=== PATIENT | female | born 1985 | race Caucasian/White ===

== ENCOUNTER → 2019-07-13 13:21 | Outpatient (CLI) | payer OTHER, SELFPAY ==
[2019-07-13 10:47] VITALS: BMI 29.9
[2019-07-13 16:45] LABS: Chlamydia Trachomatis by PCR Negative (Negative); Neisserai gonorrhoeae by PCR Negative (Negative); Probe Check PASS; Sample Adequacy Control PASS; Specimen Processing Control PASS
== END ==
PROVIDERS: Family Provider Family Medicine; PCP Family Medicine; Referring Provider Nurse Practitioner Women's Health; Visit Provider Nurse Practitioner Women's Health
DX: A64 Unspecified sexually transmitted disease (principal)
CPT/HCPCS: 87491; 87591

== ENCOUNTER 2021-12-12 09:10 | Outpatient (CLI) | payer OTHER, SELFPAY ==
[2021-12-17 22:07] LABS: HPV Genotype 16, Aptima Negative (Negative)
[2021-12-17 22:32] LABS: HPV APTIMA, High Risk Positive (Negative); HPV Genotype 18,45 Aptima Negative (Negative)
== END 2021-12-12 23:59 | disposition short-term general hospital (02) ==
LOC: LABSPEC 12-13 09:11
PROVIDERS: PCP Family Medicine; Visit Provider Nurse Practitioner Women's Health
DX: Z01.419 Encounter for gynecological examination (general) (routine) without abnormal findings (principal)
CPT/HCPCS: 87624; 88175; G0145

== ENCOUNTER 2021-12-28 12:55 | Outpatient (CLI) | payer OTHER, SELFPAY ==
--- NOTE | 2021-12-28 13:00 | US_ITS ---
STUDY: ULTRASOUND OF THE FEMALE PELVIS - COMPLETE REASON FOR EXAM: Female, 36 years old.. Heavy irregular menses. Cold 6 years ago that her IUD fell out. LMP: Unknown. TECHNIQUE: Transabdominal and Transvaginal TECHNICAL QUALITY: Adequate. COMPARISON: None. FINDINGS: The uterus is anteverted and is in a midline position. The uterus measures 7.1 x 5.4 x 4.0 cm. There is a Nabothian cyst of the cervix. The endometrium measures 12 mm in thickness, and is hyperechoic. There is no demonstrated endometrial mass. Small calcification in the endometrium. The There is no demonstrated myometrial mass. I.U.D. - The patient does not have an I.U.D. The right ovary is visualized. The right ovary measures 3.5 x 3.2 x 2.2 cm. There are multiple follicles of the right ovary with a dominant 2.9 x 1.4 x 1.6 cm cyst There is no visualized right adnexal mass or complex lesion. There is normal arterial and normal venous vascularity. The left ovary is visualized. The left ovary measures 3.4 x 3.0 x 2.4 cm. There are multiple follicles of the left ovary with a dominant 1.5 x 1.6 x 1.2 cm follicle. There is no visualized left adnexal mass or complex lesion. There is normal arterial and normal venous vascularity. There is minimal fluid in the cul-de-sac. The urinary bladder is grossly normal. Prevoid volume is 551 mL. Polycystic ovary disease: No. US/Transvaginal Non- IMPRESSION: 1. No visualize IUD within the endometrium. There is a small calcification noted. 2. Cyst versus large follicle in the right ovary. 3. Normal left ovary. 4. Minimal free fluid can''t be physiologic Electronically Signed: Robert Siddiqi DO at 22:57 EST ,
--- NOTE | 2021-12-28 13:00 | US_ITS ---
STUDY: ULTRASOUND OF THE FEMALE PELVIS - COMPLETE REASON FOR EXAM: Female, 36 years old.. Heavy irregular menses. Cold 6 years ago that her IUD fell out. LMP: Unknown. TECHNIQUE: Transabdominal and Transvaginal TECHNICAL QUALITY: Adequate. COMPARISON: None. FINDINGS: The uterus is anteverted and is in a midline position. The uterus measures 7.1 x 5.4 x 4.0 cm. There is a Nabothian cyst of the cervix. The endometrium measures 12 mm in thickness, and is hyperechoic. There is no demonstrated endometrial mass. Small calcification in the endometrium. The There is no demonstrated myometrial mass. I.U.D. - The patient does not have an I.U.D. The right ovary is visualized. The right ovary measures 3.5 x 3.2 x 2.2 cm. There are multiple follicles of the right ovary with a dominant 2.9 x 1.4 x 1.6 cm cyst There is no visualized right adnexal mass or complex lesion. There is normal arterial and normal venous vascularity. The left ovary is visualized. The left ovary measures 3.4 x 3.0 x 2.4 cm. There are multiple follicles of the left ovary with a dominant 1.5 x 1.6 x 1.2 cm follicle. There is no visualized left adnexal mass or complex lesion. There is normal arterial and normal venous vascularity. There is minimal fluid in the cul-de-sac. The urinary bladder is grossly normal. Prevoid volume is 551 mL. Polycystic ovary disease: No. US/Pelvic (Non ) IMPRESSION: 1. No visualize IUD within the endometrium. There is a small calcification noted. 2. Cyst versus large follicle in the right ovary. 3. Normal left ovary. 4. Minimal free fluid can''t be physiologic Electronically Signed: Robert Siddiqi DO at 22:57 EST Reading Location ID and State: [facility] Tel [phone], Service support ,
== END 2021-12-28 23:59 | disposition home or self-care (01) ==
LOC: US 12:59
PROVIDERS: PCP Family Medicine; Referring Provider Nurse Practitioner Women's Health; Visit Provider Nurse Practitioner Women's Health
DX: N92.6 Irregular menstruation, unspecified (principal)
CPT/HCPCS: 76830; 76856

== ENCOUNTER 2022-01-03 13:36 | Outpatient (CLI) | payer OTHER, SELFPAY ==
--- NOTE | 2022-01-03 | IMM_PTH ---
PATIENT: CODY GOLDBERG LOC: [facility] U#:[id number] AGE/SX: 36/F ROOM: RE01/03/[address]: Dr. Sandra Gaines DO : 1985 BED: DIS: 01/03/2022 SPEC #: [id number] RECD: 01/08/22 07:33 STATUS: ULISES RERick #: [id number] ELVIA: 01/03/22 00:[address]: Sandra Gaines DEPT: IMMUNOHISTOCHEMISTRY RECD BY: Dalila Gray ENTERED: 01/08/22 07:33 SP TYPE: IMMUNO OTHR DR: Dr. Ronnie Brown MD Tissues: B - Uterine cervix, NOS Procedures: p16 (initial) KI-67 (add) PHYSICIAN & INSTITUTION [place] [id number] SPECIMEN INFORMATION: Tissue Source: B ? Cervix at 12 o?clock Clinical Info: HPV positive Specimen Number: [id number] CPT code: 03658, 82461 METHODOLOGY: Deparaffinized sections of prefer/formalin-fixed tissue or PAP/DQ stained slides are incubated with monoclonal/polyclonal antibodies/oligonucleotide probes. Localization is made via biotin free immunoperoxidase method. Appropriate controls are performed and reacted as expected. Results on target cell population are indicated in the following table: RESULTS: ANTIBODY / CLONE RESULT Block B P16 (E6H4) negative Ki-67 (30-9) negative These tests were developed and their performance characteristics determined by [facility]. They may not have been cleared or approved by the U.S. Food and Drug Administration. The FDA has determined that such clearance or approval is not necessary. The above immunohistochemical/dualISH markers are ordered and reviewed by the Pathologist. INTERPRETATION: B. Cervix at 12 o?clock, biopsy: No evidence of dysplasia. AM:gareth 01/08/2022
--- NOTE | 2022-01-03 10:30 | ECC_PTH ---
PATIENT: CODY GOLDBERG LOC: [facility]#:[id number] AGE/SX: 36/F ROOM: RE01/03/[address]: Dr. Sandra Gaines DO : 1985 BED: DIS: 01/03/2022 SPEC #: [id number] RECD: 01/03/22 13:20 STATUS: ULISES ARAUJO #: [id number] ELVIA: 01/03/22 10:[address]: Sandra Gaines DEPT: SURGICAL PATHOLOGY RECD BY: Nasima Griffin ENTERED: 01/04/22 09:38 SP TYPE: ECC DONTE DR: Dr. Ronnie Brown MD Tissues: A - Endocervical B - Uterine cervix, NOS Procedures: Surgery Specimen Level IV HEADER OPERATION: Colposcopy PRE-OP DIAGNOSIS: HPV positive TISSUE SUBMITTED: A ? ECC, B ? 12 o?clock MICROSCOPIC DIAGNOSIS A. Endocervix, curettings: Scant strips of benign superficial endocervix. B. Cervix at 12 o?clock, biopsy: Squamous metaplasia and chronic inflammation. See comment. AM:gareth 01/08/2022 COMMENT B. Results from immunohistochemistry ([id number]) for surrogate HPV marker (p16) will be reported separately. MICROSCOPIC DESCRIPTION Slides are reviewed. GROSS DESCRIPTION A - Received in fixative is one container labeled with the patient's name and designated ECC. The specimen consists of multiple irregular fragments of saleh mucoid tissue that in aggregate measure 1 x 0.5 x 0.1 cm. The specimen is totally submitted in one cassette. B - Received in fixative is one container labeled with the patient's name and designated 12 o'clock cervix. The specimen consists of one irregular fragment of light saleh soft tissue that measures 0.4 x 0.3 x 0.1 cm. The specimen is totally submitted in one cassette. / SJ:gareth 01/04/2022 TC:3 CPT: 74224 x2
== END 2022-01-03 23:59 | disposition home or self-care (01) ==
LOC: LABSPEC 13:36
PROVIDERS: PCP Family Medicine; Visit Provider Obstetrics & Gynecology
DX: R87.810 Cervical high risk human papillomavirus (HPV) DNA test positive (principal)
CPT/HCPCS: 88305; 88341; 88342

== ENCOUNTER → 2022-10-24 | Outpatient (CLI) | payer OTHER, SELFPAY | END | disposition home or self-care (01) | LOC: LABSPEC 16:14 | PROVIDERS: PCP Family Medicine; Visit Provider Nurse Practitioner Women's Health | DX: N89.8 Other specified noninflammatory disorders of vagina (principal) | CPT/HCPCS: 87070; 87205 ==

== ENCOUNTER → 2022-12-16 | Outpatient (CLI) | payer OTHER, SELFPAY ==
[2022-12-20 17:14] LABS: HPV APTIMA, High Risk Positive (Negative)
== END | disposition home or self-care (01) ==
LOC: LABSPEC 11:53
PROVIDERS: PCP Family Medicine; Referring Provider Nurse Practitioner Women's Health; Visit Provider Nurse Practitioner Women's Health
DX: Z12.4 Encounter for screening for malignant neoplasm of cervix (principal); B97.7 Papillomavirus as the cause of diseases classified elsewhere
CPT/HCPCS: 87624; 88175; G0145

== ENCOUNTER → 2023-01-06 | Outpatient (CLI) | payer OTHER, SELFPAY ==
--- NOTE | 2023-01-06 12:46 | US_ITS ---
STUDY: ULTRASOUND OF THE FEMALE PELVIS - COMPLETE REASON FOR EXAM: Female, 37 years old. Menorrhagia LMP: 12/18/2022 TECHNIQUE: Transabdominal and Transvaginal TECHNICAL QUALITY: Adequate. COMPARISON: 12/28/2021 FINDINGS: The uterus is anteverted and is in a midline position. The uterus measures 8.9 x 5.6 x 4.1 cm. Normal uterine cervix. The endometrium measures 6 mm in thickness, and is hyperechoic. There is a hyperechoic 1.9 x 1.4 x 0.5 cm endometrial polyp new since the previous study There is no demonstrated myometrial mass. I.U.D. - The patient does not have an I.U.D. The right ovary is visualized. The right ovary measures 2.9 x 2.1 x 2.2 cm. There is no right ovarian cyst or ovarian mass. There is no visualized right adnexal mass or complex lesion. There is normal arterial and normal venous vascularity. The left ovary is visualized. The left ovary measures 3.3 x 2.5 x 2.6 cm. There is no left ovarian cyst or ovarian mass. There is no visualized left adnexal mass or complex lesion. There is normal arterial and normal venous vascularity. There is no fluid in the cul-de-sac. The latter is sonographically normal with estimated capacity of 482 mL US/Pelvic (Non ) IMPRESSION: Hyperechoic 1.9 x 1.4 x 0.5 cm lesion within the endometrium, likely a polyp not seen on previous study No suspicious adnexal mass or free fluid Electronically Signed: Buddy Dhillon MD at 8:19 EST ,
== END | disposition home or self-care (01) ==
LOC: US 12:45
PROVIDERS: Visit Provider Obstetrics & Gynecology
DX: N92.6 Irregular menstruation, unspecified (principal)
CPT/HCPCS: 76830; 76856

== ENCOUNTER → 2023-01-09 | Outpatient (CLI) | payer OTHER, SELFPAY ==
--- NOTE | 2023-01-09 | IMM_PTH ---
PATIENT: CODY GOLDBERG LOC: [facility] U#:[id number] AGE/SX: 37/F ROOM: RE01/09/[address]: Dr. Sandra Gaines DO : 1985 BED: DIS: 01/09/2023 SPEC #: [id number] RECD: 01/13/23 12:45 STATUS: ULISES RERick #: [id number] ELVIA: 01/09/23 00:[address]: Sandra Gaines DEPT: IMMUNOHISTOCHEMISTRY RECD BY: Dalila Gray ENTERED: 01/13/23 12:47 SP TYPE: IMMUNO OTHR DR: RAJI Luis Tissues: A - Uterine cervix, NOS Procedures: p16 (initial) KI-67 (add) PHYSICIAN & INSTITUTION [place] [id number] SPECIMEN INFORMATION: Tissue Source: A ? Cervix at 12 o?clock Clinical Info: ASCUS, HPV positive Specimen Number: [id number] CPT code: 19896, 27929 METHODOLOGY: Deparaffinized sections of prefer/formalin-fixed tissue or PAP/DQ stained slides are incubated with monoclonal/polyclonal antibodies/oligonucleotide probes. Localization is made via biotin free immunoperoxidase method. Appropriate controls are performed and reacted as expected. Results on target cell population are indicated in the following table: RESULTS: ANTIBODY / CLONE RESULT Block A P16 (E6H4) negative Ki-67 (30-9) positive, low These tests were developed and their performance characteristics determined by [facility]. They may not have been cleared or approved by the U.S. Food and Drug Administration. The FDA has determined that such clearance or approval is not necessary. The above immunohistochemical/dualISH markers are ordered and reviewed by the Pathologist. INTERPRETATION: A. Cervix at 12 o?clock, biopsy: Negative for dysplasia. CARLA:gareth 01/14/2023
--- NOTE | 2023-01-09 14:00 | CER_PTH ---
PATIENT: CODY GOLDBERG [facility][id number] AGE/SX: 37/F ROOM: RE01/09/[address]: Dr. Sandra Gaines DO : 1985 BED: DIS: 01/09/2023 SPEC #: [id number] RECD: 01/09/23 14:50 STATUS: ULISES ARAUJO #: [id number] ELVIA: 01/09/23 14:[address]: Sandra Gaines DEPT: SURGICAL PATHOLOGY RECD BY: Leah Molina ENTERED: 01/10/23 07:37 SP TYPE: CERV OTHR DR: RAJI Luis Tissues: A - Uterine cervix, NOS B - Endocervical Procedures: Surgery Specimen Level IV HEADER OPERATION: Colposcopy PRE-OP DIAGNOSIS: ASCUS, HPV positive TISSUE SUBMITTED: A - Cervix 12 o?clock, B - Endocervical curettings MICROSCOPIC DIAGNOSIS A. Cervix, 12 o?clock, biopsy: Moderate chronic inflammation and squamous metaplasia. Negative for dysplasia. See comment. B. Endocervical curettings: Fragments of benign endocervical epithelium, negative for dysplasia. CARLA:gareth 01/13/2023 COMMENT A. Immunohistochemistry ([id number]) for surrogate HPV marker (p16) supports the above diagnosis. MICROSCOPIC DESCRIPTION Slides are reviewed. GROSS DESCRIPTION A - Received in fixative is one container labeled with the patient's name and designated 12 o'clock. The specimen consists of one irregular fragment of light saleh soft tissue that measures 0.4 x 0.4 x 0.1 cm. The specimen is totally submitted in one cassette. B - Received in fixative is one container labeled with the patient's name and designated ECC. The specimen consists of a scant amount of soft tissue. The specimen is totally submitted for cell block preparation. / CARLA:gareth 01/10/2023 TC:3 CPT: 54852 x2
== END | disposition home or self-care (01) ==
LOC: LABSPEC 14:59
PROVIDERS: Visit Provider Obstetrics & Gynecology
DX: N87.1 Moderate cervical dysplasia (principal)
CPT/HCPCS: 88305; 88341; 88342

== ENCOUNTER 2023-02-25 10:01 | Day surgery (SDC) | payer OTHER, SELFPAY ==
[2023-02-25] VITALS (8 sets, daily range): BP systolic 102–121; BP diastolic 61–88; PULSE 64–76; RESP 16–17; TEMP 36.7–36.9; O2SAT 97; BMI 32.7
[2023-02-25] MEDS: Levonorgestrel IUD (Liletta) 1 EACH INTRA-UTER (08:00)
[2023-02-25] MEDS: Lactated Ringers 1,000 ML 15 ML IV (10:48)
[2023-02-25 10:56] LABS: Internal QC Validated? YES +Cl - CLEAR BKGD; Pregnancy, Urine Negative Negative
--- NOTE | 2023-02-25 11:02 | HP.PCM_ITS ---
History and Physical Date of Admission: 02/25/23 Intake Vital Signs ? 01/09/2313:44 01/09/2313:45 Height 5 ft 6 in 5 ft 6 in Weight: 208 lb 8 oz ? BMI 33.6 ? BP 124/81 H ? Allergies No Known Allergies Allergy (Verified 01/09/23 13:44) Medications multivitamin 1 tab PO DAILY 12/12/21 [History Confirmed 01/09/23] alprazolam 0.25 mg tablet (Xanax) 0.25 mg PO .prn 10/24/22 [History Confirmed 01/09/23] bupropion HCl 150 mg tablet,12 hr sustained-release (Wellbutrin SR) 150 mg PO DAILY 10/24/22 [History Confirmed 01/09/23] escitalopram oxalate 10 mg tablet 10 mg PO DAILY 10/24/22 [History Confirmed 01/09/23] megestrol 40 mg tablet 40 mg PO .COMPLEX #45 tabs 12/16/22 [Rx Confirmed 01/09/23] Post menopausal: No Patient : No : No PFSH PFSH Family History? Father HypertensionGrandfather CancerGrandmother Cancer Social History? number of children:? 1 current occupational status:? employed current occupation:? [employer] Smoking Status:? Light Smoker (<10/day) Tobacco: How many years used:? 12 alcohol intake:? current alcohol intake frequency: holidays/special occasions only substance use type:? does not use what type of physical activity do you participate in:? other details: farming seatbelt use:? always do you feel safe at home:? Yes additional social history:? [place] ? ? [employer] History ? ? ? 2 ? Elective abortions ? Hx ParaA ? ? ? 1 ? Spontaneous abortions ? ? ? 1 Hx # Term Pregnancies ? ? ? 1 ? Ectopic pregnancies ? Hx # PregnanciesA ? Multiple births ? # of living children ? ? ? 1 Past Pregnancies Del. Date Name GA/Weeks Outcome Route Bth Weight Infant Gen Labor Lgth Anesthesia Del [facility] Provider FOB Unknown Tonia? ? 2007 ? HPI Colposcopy Details: CODY GOLDBERG is a 37 year old who presents for hysteroscopy D&C. She has had on and off bleeding for the last year. She is ready for a dilation and curettage +/- mirena IUD. ROS Const ROS Unobtainable: All systems reviewed & are unremarkable except as noted in H Resp Resp: Reports system reviewed and no additional complaints, except as documented; Denies cough GI GI: Reports as per HPI Psych Psych: Reports system reviewed and no additional complaints, except as documented Exam Const General: cooperative, healthy appearing, comfortable and no acute distress Resp Effort & Inspection: normal respiratory effort General: bimanual renal exam normal bilaterally External Female Exam: normal appearance of the urethra Urethra: normal appearance of the urethra Speculum Exam - Vagina: normal appearance of the vagina Speculum Exam - Cervix: normal appearance of the cervix Bimanual Exam- Adnexa, other: normal adnexae and normal Pelvic Support: normal Skin General: no rashes or lesions noted Psych Appearance: grossly normal Speech and Movement: speech and movement normal Results POC Urine Office , Urine Negative ? ? Last Edit by Noris Kimball on 01/09/23 13:57 Coding Diagnoses ASCUS with positive high risk human papillomavirus of vagina? R87.620; R87.811 HPV (human papilloma virus) infection? B97.7 Irregular menses? N92.6 Abnormal uterine bleeding due to endometrial polyp? N93.9; N84.0 Assessment and Plan Assessment and Plan (1) ASCUS with positive high risk human papillomavirus of vagina: ?Status:?Acute ?Comment: colposcopy (2) HPV (human papilloma virus) infection: ?Status:?Acute (3) Irregular menses: ?Status:?Acute ?Comment: Failed IUD, aygestin. US normal 12/2021. Rx megace. schedule with JV hysteroscopy D&C (4) Abnormal uterine bleeding due to endometrial polyp: ?Status:?Acute ?Plan: After discussing the patient's diagnosis and treatment plan options, patient wishes to proceed with surgical management. plan to proceed with dilation and curettage and removal of polyp and mirena insertion to prevent further polyps.? I have discussed with the patient the risks, benefits, and alternatives of the procedure which include but are not limited to risks of anesthesia, bleeding, infection, possible damage to bowel, bladder, or surrounding vasculature which could lead to additional surgery to evaluate any complications.? Patient agrees to procedure and wishes to proceed.? ACOG/uptodate references given for additional information regarding procedure.?
--- NOTE | 2023-02-25 11:30 | EMB_PTH ---
PATIENT: CODY GOLDBERG LOC: [facility] [place] U#:[id number] AGE/SX: 37/F ROOM: RE02/25/[address]: Dr. Sandra Gaines DO : 1985 BED: DIS: 02/25/2023 SPEC #: [id number] RECD: 02/25/23 13:36 STATUS: ULISES ARAUJO #: [id number] ELVIA: 02/25/23 11:[address]: Sandra Gaines DEPT: SURGICAL PATHOLOGY RECD BY: Nasima Griffin ENTERED: 02/26/23 11:00 SP TYPE: ENDOM BX/C OTHR DR: RAJI Luis Tissues: Endometrium, NOS Procedures: Surgery Specimen Level IV HEADER OPERATION: Hysteroscopy, D & C, polypectomy, IUD PRE-OP DIAGNOSIS: ASCUS with positive high risk HPV, irregular menses, abnormal uterine bleeding TISSUE SUBMITTED: Endometrial curettings MICROSCOPIC DIAGNOSIS Endometrium, curettings: Polypoid fragments of mildly disordered proliferative endometrium with stromal and focal glandular breakdown. AM:gareth 02/27/2023 MICROSCOPIC DESCRIPTION Slides are reviewed. GROSS DESCRIPTION Received in fixative is one container labeled with the patient's name and designated endometrial curettings. The specimen consists of multiple fragments of saleh hemorrhagic soft tissue that in aggregate measure 2.5 x 1.5 x 0.2 cm. A fragment of polyp is also noted measuring 1.5 x 0.6 x 0.2 cm. The entire specimen is submitted in two cassettes. Cassette 2 contains the polyp. / SJ:gareth 02/26/2023 TC: 5 CPT: 87287
[2023-02-25] MEDS: Lidocaine 1% (20 ml mdv) 20 ML Vial (11:54)
--- NOTE | 2023-02-25 12:24 | DCINST_ITS ---
Discharge Instructions Diet Discharge Diet: No restrictions Activity Discharge Activity: Return to Normal Activity, May Shower and May Take a Tub Bath (after 1 week) May resume sexual activity in: 1-2 weeks Weight Bearing Status: Weight bearing as tolerated Lifting Restrictions: none Dressing / Incision Call your doctor if you observe: Fever of 101 or Higher, Using more than 1 pad per hour, Shortness of breath and Uncontrolled pain Follow Up Care Please Follow Up With: Sandra Gaines DO When: Call [phone] to schedule appointment. Test Results: Test results from this visit will be discussed in further detail at your follow- up appointment, if applicable. Discharge Plan Admission Primary Reason for Your Visit: hysteroscopy dilation and curettage, removal of polyp and placement of IUD Attending Provider: Sandra Gaines Primary Care Provider: Margret Brownlee Discharge Orders/Prescriptions Prescriptions: New naproxen 500 mg tablet 500 mg PO BID PRN (Reason: pain) Qty: 20 0RF Continued multivitamin Tablet 1 tab PO DAILY escitalopram oxalate 10 mg tablet 5 mg PO DAILY bupropion HCl [Wellbutrin SR] 150 mg tablet sustained-release 12 hr 150 mg PO DAILY alprazolam [Xanax] 0.25 mg tablet 0.25 mg PO .prn Referrals / Follow Up: Margret Brownlee PA [Primary Care Provider] - Disposition Disposition (needs filled in before D/C Order can be placed): Home, Self Care
--- NOTE | 2023-02-25 12:26 | PCM.OP.BLANK ---
Problems Associated Problem List Diagnoses (1) Abnormal uterine bleeding due to endometrial polyp: Operative Report Date of Procedure: 02/25/23 Preoperative diagnosis: abnormal uterine bleeding and abnormal ultrasound suggestive of polyp Postoperative diagnosis: abnormal uterine bleeding and abnormal ultrasound suggestive of polyp Procedure: hysteroscopy Dilation and curettage/polypectomy, placement of intrauterine device Surgeon: Dr. Sandra Gaines DO Anesthesia: MAC/local complications: none EBL: 10cc urine output: 75cc IV fluids in: 500cc fluid deficit: 0 details of the procedure. Patient was prepped and draped in a normal sterile fashion under MAC anesthesia. A weighted speculum was placed in the vagina and the anterior lip of the cervix was grasped with a single-tooth tenaculum. A paracervical block was placed with 1% lidocaine. Cervix was progressively dilated to allow passage of a 5 mm hysteroscope. The lining was fully visualized and noted to have a polyp like mass on the anterior uterine wall. Uterine sounded to 8 cm. Curettage was performed and the polyp structure was removed and sent to pathology. The levonorgestrel intrauterine device was inserted into the uterus and the string was trimmed to 3 cm from the cervix. All instruments were removed from the vagina and excellent hemostasis was noted. Patient was awoken and taken to recovery in stable condition. Multi Select Codes Urinary/Genital Urinary/Genital CPT Codes: 31988 Hysteroscopy,EMC, Polypectomy and Other Procedure See Report (insertion of intrauterine device)
[2023-02-25] MEDS: HYDROcodone Bitartrate/Apap 5/325 Tablet PO (13:20)
== END 2023-02-25 13:42 | disposition home or self-care (01) ==
LOC: SDC 10:02 → AC 10:04
PROVIDERS: Anesthesiology; Referring Provider Obstetrics & Gynecology; Visit Provider Obstetrics & Gynecology
PROC: 0UB98ZZ Excision of Uterus, Via Natural or Artificial Opening Endoscopic (ICD-10-PCS; CPT 58558; principal; 2023-02-25 11:15)
DX: N84.0 Polyp of corpus uteri (principal); N93.9 Abnormal uterine and vaginal bleeding, unspecified; F17.200 Nicotine dependence, unspecified, uncomplicated; N92.6 Irregular menstruation, unspecified; F41.9 Anxiety disorder, unspecified; Z79.899 Other long term (current) drug therapy; Z30.430 Encounter for insertion of intrauterine contraceptive device
CPT/HCPCS: 58558; 58300; 00952; 81025; 86850; 86900; 86901; 88305; J7120; J2405

== ENCOUNTER → 2023-12-31 | Outpatient (CLI) | payer OTHER, SELFPAY ==
--- OUTSIDE RECORDS SUMMARY | 2023-12-31 11:12 | XMS RPT_ITS | CCD ---
Author Name Unknown Address [email or web address] [place] [address] Organization [facility] Care Team Providers Care Metal Box Maker Name Role Phone DOCTOR, NO F. Unavailable Unavailable BREECE, MIKE Unavailable Unavailable Kem MARIN, Margret Magana Unavailable [phone] [facility] Unavailable Shaun MOLDING MANAGER, Krupa Unavailable Savanah RN, Dorinda Armstrong Unavailable Unavaila ble Martlisseth MOLDING MANAGER, Morenita Unavailable Unavailable Michelle SECURITY CHECKER, Francisca Unavailable Unavailable Uptain CNM, Crystal K Unavailable Joey Brown MD Unavailable [phone] Stan Gannon LPN Unavailable Unavailable Unavailable Unavailable JOEY BROWN Consulting Unavailable ANABEL HUTCHINSON CNP Admitting Unavailable ANABEL HUTCHINSON CNP Primary Care Unavailable ANABEL HUTCHINSON CNP Attending Unavailable PROVIDER, UNKNOWN Consulting Unavailable PROVIDER, UNKNOWN Consulting Unavailable PROVIDER, UNKNOWN Consulting Unavailable Medications Current Medications Medication Drug Class(es) Dates Sig (Normalized) Sig (Original) ALPRAZolam 0.25 mg oral tablet (1 source) Benzodiazepine Start: 08-08-2023 ALPRAZolam 0.25 mg tablet ; 1 (one) Tablet three times daily, as needed for 0 days Quantity: 30 {Tablet} Refills: 0 Ordered: 08-Aug-2023 TANIA Brownlee Start: 08-Aug-2023 Comments: Medication taken as needed. Farnaz Duvall 08/08/2023 Completed/Discontinued Medications Medication Drug Class(es) Dates Sig (Normalized) Sig (Original) [id number] 200 actuat albuterol 0.09 mg/actuat metered dose inhaler (1 source) beta2-Adrenergic Agonist Albuterol 90 MCG/ACT Inhalation Aerosol Solution ; as needed (90 MCG/ACT) Status: Inactive Comments: Medication taken as needed. Problems Active Problems Problem Classification Problem Date Documented Date Episodic/Chronic Acute bronchitis (2 sources) Acute bronchitis; Translations: [Acute bronchitis, unspecified] 07-17-2021 Episodic Adjustment disorders (3 sources) Adjustment disorder with anxious mood; Translations: [Adjustment disorder with anxiety] 08-11-2023 Chronic Anxiety disorders (14 sources) Anxiety; Translations: [Anxiety disorder, unspecified] 08-11-2023 Chronic Disorders usually diagnosed in infancy, childhood, or adolescence (6 sources) Attention deficit hyperactivity disorder, predominantly inattentive type; Translations: [Other specified behavioral and emotional disorders with onset usually occurring in childhood and adolescence] 08-11-2023 Chronic Malaise and fatigue (5 sources) Fatigue; Translations: [Other fatigue] 08-11-2023 Episodic Other female genital disorders (2 sources) Abnormal vaginal bleeding; Translations: [Abnormal uterine and vaginal bleeding, unspecified] 07-01-2019 Chronic Other nervous system disorders (2 sources) Impaired cognition; Translations: [Other symptoms and signs involving cognitive functions and awareness] 08-11-2023 Episodic Other nutritional; endocrine; and metabolic disorders (2 sources) Body mass index 30+ - obesity; Translations: [Body mass index (BMI) 31.0-31.9, adult] 07-17-2021 Chronic Other screening for suspected conditions (not mental disorders or infectious disease) (2 sources) Encounter for screening for diabetes mellitus; Translations: [Encounter for screening for cardiovascular disorders] Onset: 12-24-2023 Episodic Other upper respiratory disease (1 source) Other allergic rhinitis; Translations: [Other allergic rhinitis] Onset: 12-24-2023 Chronic Residual codes; unclassified (1 source) Tobacco user; Translations: [Tobacco use] 08-11-2023 Episodic Screening and history of mental health and substance abuse codes (2 sources) H/O: anxiety state; Translations: [Personal history of other mental and behavioral disorders] 08-11-2023 Episodic Unclassified (1 source) Number of Children 06-29-2019 Past or Other Problems Problem Classification Problem Date Documented Da te Episodic/Chronic Unclassified (1 source) Cold Symptoms - Symptoms include sneezing (had for the first few days), runny nose, ear fullness, sore throat (did have in the beginning, has post nasal drainage), hoarseness, dry cough (been getting a pain on the left lower side of chest/bra line, mostly occurs with coughing, will get slight pain other times when she is not coughing. Cough is slightly productive today), wheezing (the prescribed Albuterol inhaler has helped with the wheezing and shortness of breath), fever (low grade fever intermittent, has not been over 100.8 F.), chills (chills have subsided but will get a cold clammy sweat feeling when she is having a coughing spell), general malaise (body aches in the beginning but not now), headache and facial pain (sinus pressure), but do not include nasal congestion, ear pain or productive cough. The onset was 1 week(s) ago. The symptoms occur constantly. The patient describes this as moderate in severity and unchanged (will feel better some mornings). Current treatment includes non-prescription cold medication (Nyquil), an oral decongestant (Mucinex) and Albuterol inhaler. Risk factors include smoking (has not smoked while being sick). The patient has been exposed to an individual with similar symptoms (coworker started with sx 2 days prior to patient's sx starting). Patient denies history of seasonal allergies, asthma or tonsillectomy. Note for Upper respiratory infection : Did a teledoc visit on Friday, was prescribed Albuterol Inhaler PRN and advised to have Covid-19 test done. Patient was tested yesterday for Covid-19, 24 hour test and came back negative. Is not vaccinated against Covid-19. 07-17-2021 Unclassified (1 source) Menstrual problems - The menstrual problems are characterized as intermenstrual spotting and have been occurring in a continuous pattern for 4 days. The first day of the last menstrual period was : (06/18/2019-06/22/2019 spotting started 06/26/2019-intercourse the night before spotting began). Currently : no. The symptoms have been associated with abdominal cramps (right thigh cramping like she gets with her periods), but have not been associated with abdominal pain, painful intercourse, fever, vomiting, low back pain or galactorrhea. There is a medical history of miscarriage (3 years ago) and emotional problems (anxiety), while there is no history of diabetes, thyroid disease, ectopic or uterine/cervical cancer. The patient denies the use of oral contraceptives, anticoagulants, aspirin, digitalis, adrenal steroids, thyroid medications or chemotherapy. 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 06-29-2019 Unclassified (1 source) Anxiety - The onset of the anxiety has been gradual and has been occurring in a persistent pattern for 1 year. The course has been recurrent. The anxiety is characterized as apprehension. Note for Anxiety : she also has a foggy feeling , ears ringing ,mild headaches for 5days-she does think she may have mild seasonal allergies. She also has times where she has difficulty focusing . She no longer has the stress at work that she discussed at her last visit, she has since left that place of employment and is happy where she is. 04-02-2019 Unclassified (1 source) Follow up from hospital stay - Name of Hospital: [facility]. Date of Admission: 02/09. The patient was hospitalized for presyncope. No new medications were prescribed. Note for Follow up from hospital stay : [place] E[place] and told to seek advice from a PCP for ppossible panic attack. 02-12-2018 Results Test Name Value Interpretation Reference Range Facil ity Vital Signs Date Time Vital Sign Value Performing Clinician Faci lity 08-11-2023 08:52-0400 Body height 167.64 cm Dorinda Pavon RN [facility], [facility]. 08-11-2023 08:52-0400 Body mass index (BMI) [Ratio] 32.44 kg/m2 Dorinda aPvon RN [facility], [facility]. 08-11-2023 08:52-0400 Body surface area Derived from formula 2 m2 Dorinda Pavon RN [facility], [facility].; [employer]. 08-11-2023 08:52-0400 Body weight 91.17 kg Dor[facility].; He [employer] [facility], [facility]. 08-11-2023 08:52-0400 Diastolic blood pressure 80 mm[Hg] [facility].; [employer], [facility]. Encounters Encounter Date Encounter Type Care Provider Facility Start: 12-24-2023 End: 12-24-2023 [facility] Start: 08-11-2023 End: 08-11-2023 Office outpatient visit 15 minutes Margret Brownlee PA-C Work Phone: [facility] Start: 08-08-2023 End: 08-08-2023 Medication Margret Brownlee PA-C [facility]: [facility] Start: 09-04-2022 End: 09-04-2022 Medication Margret Brownlee PA-C Work Phone: [employer] [facility] Start: 08-19-2022 End: 08-19-2022 Office outpatient visit 25 minutes Margret Brownlee PA-C Work Phone: [facility] Start: 07-16-2022 End: 07-16-2022 Medication Margret Brownlee PA-C Work Phone: [facility] Start: 07-04-2022 End: 07-04-2022 Office outpatient visit 25 minutes Margret Brownlee PA-C Work Phone: [facility] Start: 04-09-2022 End: 04-09-2022 Medication Margret Brownlee PA-C Work Phone: [facility] Start: 03-05-2022 End: 03-05-2022 Orders Margret Brownlee PA-C Work Phone: [facility] Start: 03-04-2022 End: 03-04-2022 Medication Margret Brownlee PA-C Work Phone: [employer] Start: 03-01-2022 End: 03-01-2022 Office outpatient visit 15 minutes Margret Brownlee PA-C Work Phone: [employer] Start: 01-28-2022 End: 01-28-2022 Medication Margret Brownlee PA-C Work Phone: [employer] Start: 01-09-2022 End: 01-09-2022 Office outpatient visit 15 minutes Margret Brownlee PA-C Work Phone: [employer] Start: 07-17-2021 End: 07-17-2021 Office outpatient visit 15 minutes Margret Brownlee PA-C Work Phone: [employer] Start: 03-12-2021 End: 03-12-2021 Patient encounter procedure Margret Brownlee PA-C Work Phone: [employer] Start: 07-01-2019 End: 07-01-2019 Orders Margret Brownlee PA-C Work Phone: [employer] Start: 06-29-2019 End: 06-29-2019 Office outpatient visit 10 minutes Margret Brownlee PA-C Work Phone: [employer] Start: 04-02-2019 End: 04-02-2019 Patient encounter procedure Margret Brownlee PA-C Work Phone: [employer] Start: 02-11-2018 End: 02-12-2018 Patient encounter procedure Margret Brownlee PA-C Work Phone: [employer] Start: 02-09-2018 End: 02-09-2018 Emergency department patient visit NO F. DOCTOR Facility:[facility] Procedures Date Procedure Procedure Detail Performing Clinician Start: 02-11-2018 End: 02-11-2018 Body mass index documented Joey Brown MD Work Phone: Plan of Treatment Date Care Activity Detail Author Start: 02-12-2024 Patient encounter procedure Medical; EXTENDED RTN - 6 mo f/u [employer] Start: 12-Feb-2024 10:50 TANIA Brownlee Appointment Request [employer] Payers Date Payer Category Payer Private Health Insurance [id number] 1985 Unknown [id number] [facility] Social History Date Type Detail Facility Tobacco Use: Tobacco Use: ; Former smoker . [employer] Female [employer]; [employer] Work Phone: Smokes tobacco daily [employer]; [employer]. Work Phone: Ex-smoker [employer]; [employer] Work Phone: Summary Purpose Family History No Family History Records Found Diabetes Mellitus Type II Status:Active Commen ts:grandparents Father Status:Active Comments:In good health. Hypertension Status:Active Comments:Family Members In General. Mother Status:Active Comments:In good health. Advance Directives No Advanced Directives Records FoundNo Advanced Directives Records FoundNo Advanced Directives Records Found Additional Source Comments INFORMATION SOURCE (unrecogn ized section and content) DATE CREATED AUTHOR AUTHOR'S ORGANIZ ATION 03/07/2022 [facility] DATE CREATED AUTHOR AUTHOR'S ORGANIZ ATION 12/25/2023 [facility] FOR RECORDS PERTAINING TO PATIENTS WHO ARE OR HAVE BEEN ENROLLED IN A CHEMICAL DEPENDENCY/SUBSTANCEABUSE PROGRAM, SOME INFORMATION MAY BE OMITTED. This clinical summary was aggregated from multiple sources. Caution should be exercised in using it in the provision of clinical care. This summary normalizes information from multiple sources, and as a consequence, information in this document may materially change the coding, format and clinical context of patient data. In addition, data may be omitted in some cases. CLINICAL DECISIONS SHOULD BE BASED ON THE PRIMARY CLINICAL RECORDS. [employer] [facility]. provides no warranty or guarantee of the accuracy or completeness of information in this document.
[2024-01-05 20:07] LABS: HPV APTIMA, High Risk Positive (Negative); HPV Genotype 16, Aptima Negative (Negative); HPV Genotype 18,45 Aptima Negative (Negative)
== END | disposition home or self-care (01) ==
LOC: LABSPEC 10:25
PROVIDERS: Referring Provider Nurse Practitioner Women's Health; Visit Provider Nurse Practitioner Women's Health
DX: Z12.4 Encounter for screening for malignant neoplasm of cervix (principal)
CPT/HCPCS: 87624; 88175; G0145

== ENCOUNTER → 2024-01-02 | Outpatient (CLI) | payer OTHER, SELFPAY ==
--- NOTE | 2024-01-02 07:55 | US_ITS ---
STUDY: ULTRASOUND OF THE FEMALE PELVIS - COMPLETE REASON FOR EXAM: Female, 38 years old. Bleeding, IUD check LMP: Unknown. TECHNIQUE: Transabdominal and Transvaginal TECHNICAL QUALITY: Adequate. COMPARISON: Comparison is made with prior study dated January 06, 2023. FINDINGS: The uterus is anteverted and is in a midline position. The uterus measures 8.2 cm x 5.7 cm x 3.6 cm. There is a Nabothian cyst of the cervix. The endometrium measures 2.9 mm in thickness, and is hyperechoic. There is no demonstrated endometrial mass. There is no demonstrated myometrial mass. I.U.D. - The patient does have an I.U.D. . IUD is in good position. The right ovary is visualized. The right ovary measures 3.9 cm x 2.5 cm x 2.7 cm. There is no right ovarian cyst or ovarian mass. There is no visualized right adnexal mass or complex lesion. There is normal arterial and normal venous vascularity. The left ovary is visualized. The left ovary measures 3.5 cm x 2.1 cm x 2.7 cm. There is no left ovarian cyst or ovarian mass. There is no visualized left adnexal mass or complex lesion. There is normal arterial and normal venous vascularity. There is no fluid in the cul-de-sac. The pre void volume of the bladder was 22 ml. Polycystic ovary disease: No. US/Pelvic w/ Transvaginal IMPRESSION: Normal female pelvis. IUD is in good position. Electronically Signed: Herminio Reynoso MD at 14:16 EST ,
--- OUTSIDE RECORDS SUMMARY | 2024-01-02 08:23 | XMS RPT_ITS | CCD ---
Author Name Unknown Address [facility] [place] [address] Organization [facility] Care Team Providers Care Butcher Scullion Name Role Phone DOCTOR, NO F. Unavailable Unavailable BREECE, MIKE Unavailable Unavailable Kem MARIN, Margret Magana Unavailable [facility] Unavailable Shaun TRAVELING [place]ION[place], Krupa Unavailable Savanah RN, Dorinda Armstrong Unavailable Unavaila ble Martlisseth TRAVELING [place]ION[place], Morenita Unavailable Unavailable Michelle ASSOCIATE DIRECTOR REGULATORY AFFAIRS, Francisca Unavailable Unavailable Uptain CNM, Crystal K Unavailable Joey Brown MD Unavailable [phone] Stan Gannon LPN Unavailable Unavailable Unavailable Unavailable [...] Drug Class(es) Dates Sig (Normalized) Sig (Original) [id number] 200 actuat albuterol 0.09 mg/actuat metered dose [...] of her and miscarriage 3 years ago, 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 Date of Admission: 02/09. The patient was [...] Body height 167.64 cm Dorinda Pavon RN [facility], [facility]. 08-11-2023 08:52-0400 Body mass index (BMI) [Ratio] 32.44 kg/m2 Dorinda Pavon RN [facility], [facility]. 08-11-2023 08:52-0400 Body surface area Derived from formula 2 m2 Dorinda Pavon RN [facility], [facility].; [facility] [email or web address]. 08-11-2023 08:52-0400 Body weight 91.17 kg Dorinda Pavon RN [email or web address].; [facility] [employer] [facility], [facility]. 08-11-2023 08:52-0400 Diastolic blood pressure 80 mm[Hg] Dorinda Pavon RN [email or web address].; [employer], [facility]. Encounters Encounter Date Encounter Type Care Provider Facility Start: 12-24-2023 End: 12-24-2023 [facility] Start: 08-11-2023 End: 08-11-2023 Office outpatient visit 15 minutes Margret Brownlee PA-C [facility] Start: 08-08-2023 End: 08-08-2023 Medication Margret Brownlee PA-C Work Phone: [employer] Start: 09-04-2022 End: 09-04-2022 Medication Margret Brownlee PA-C Work Phone[facility] Start: 08-19-2022 End: 08-19-2022 Office outpatient visit 25 minutes Margret Brownlee PA-C Work Phone: [employer] Start: 07-16-2022 End: 07-16-2022 Medication Margret Brownlee PA-C Work Phone: [employer] Start: 07-04-2022 End: 07-04-2022 Office outpatient visit 25 minutes Margret Brownlee PA-C Work Phone: [employer]. Start: 04-09-2022 End: 04-09-2022 Medication Margret Brownlee PA-C Work Phone: [employer]. Start: 03-05-2022 End: 03-05-2022 Orders Margret Brownlee PA-C Work Phone: [employer]. Start: 03-04-2022 End: 03-04-2022 Medication Margret Brownlee PA-C Work Phone: [facility] Start: 03-01-2022 End: 03-01-2022 Office outpatient visit 15 minutes Margret Brownlee PA-C Work Phone: [facility] Start: 01-28-2022 End: 01-28-2022 Medication Margret Brownlee PA-C Work Phone: [facility] Start: 01-09-2022 End: 01-09-2022 Office outpatient visit 15 minutes Margret Brownlee PA-C Work Phone: [employer] Start: 07-17-2021 End: 07-17-2021 Office outpatient visit 15 minutes Margret Brownlee PA-C Work Phone: [employer] Start: 03-12-2021 End: 03-12-2021 Patient encounter procedure Margret Brownlee PA-C Work Phone: [employer] Start: 07-01-2019 End: 07-01-2019 Orders Margret Brownlee PA-C Work Phone: [facility] Start: 06-29-2019 End: 06-29-2019 Office outpatient visit 10 minutes Margret Brownlee PA-C Work Phone: [employer] Start: 04-02-2019 End: 04-02-2019 Patient encounter procedure Margret Brownlee PA-C Work Phone: [employer] Start: 02-11-2018 End: 02-12-2018 Patient encounter procedure Margret Brownlee PA-C Work Phone: [facility] Start: 02-09-2018 End: 02-09-2018 Emergency department patient visit NO F. DOCTOR Facility:[facility] Procedures Date Procedure Procedure Detail Performing Clinician Start: 02-11-2018 End: 02-11-2018 Body mass index documented Joey Brown MD Work Phone: Plan of Treatment Date Care Activity Detail Author Start: 02-12-2024 Patient encounter procedure Medical; EXTENDED RTN - 6 mo f/u [facility] Start: 12-Feb-2024 10:50 TANIA Brownlee Appointment Request [facility] Payers Date Payer Category Payer Private Health Insurance [id number] 1985 Unknown [id number] Unknown [facility] Social History Date Type Detail Facility Tobacco Use: Tobacco Use: ; Former smoker . [employer]. Female [employer]; [employer] Work Phone: Smokes tobacco daily [employer]; [employer]. Work Phone: Ex-smoker [employer]; [employer] Work Phone: Summary Purpose Family History No [...] DATE CREATED AUTHOR AUTHOR'S ORGANIZ ATION 12/25/2023 [facility] FOR RECORDS PERTAINING TO PATIENTS WHO ARE [...] BE BASED ON THE PRIMARY CLINICAL RECORDS. [employer] [facility]. provides no warranty or guarantee of the accuracy or completeness of information in this document.
== END | disposition home or self-care (01) ==
LOC: OPUS 07:53
PROVIDERS: Referring Provider Nurse Practitioner Women's Health; Visit Provider Nurse Practitioner Women's Health
DX: N93.9 Abnormal uterine and vaginal bleeding, unspecified (principal); Z30.431 Encounter for routine checking of intrauterine contraceptive device
CPT/HCPCS: 76830; 76856

== ENCOUNTER 2024-03-29 21:09 | Observation (INO) | payer OTHER, SELFPAY ==
[2024-03-29 21:10] VITALS: BP 185/109; PULSE 106; RESP 16; TEMP 36.2; O2SAT 99; BMI 33.7
--- NOTE | 2024-03-29 21:19 | CT_ITS ---
We are attempting to reach an attending provider to discuss findings. An addendum with communication details will be sent when the communication is complete. INDICATION: Neuro deficit, acute, stroke suspected EXAMINATION: CT BRAIN - CT Head Stroke Protocol W/O Contrast Injection TECHNIQUE: Serial CT axial images were obtained of the head without intravenous contrast. A radiation dose optimization technique was used for this scan. COMPARISON: None. Findings: Serial CT axial images of the head without contrast. BRAIN PARENCHYMA: Normal kuhn-white matter differentiation. No evidence of intraparenchymal hemorrhage or hyperattenuating extra-axial fluid collection. BONES: Paranasal sinuses are clear. SCALP/REMAINING SOFT TISSUES: Unremarkable. ASPECTS Score for Acute Strokes, if applicable: 10 CT/STROKE Brain/Head without Cont IMPRESSION: No acute intracranial hemorrhage in this noncontrast head CT. Electronically Signed: Jordin Baptiste MD at 21:37 EDT ,
--- NOTE | 2024-03-29 21:19 | CT_ITS ---
We are attempting to reach an attending provider to discuss findings. An addendum with communication details will be sent when the communication is complete. STUDY: CTA HEAD AND NECK WITH CONTRAST REASON FOR EXAM: Female, 38 years old. Neuro deficit, acute, stroke suspected RADIATION DOSAGE (If Supplied By Facility): CTDIvol = ( 17.98 ) mGy, DLP = ( 747.19 ) mGycm TECHNIQUE: CT angiography was performed with a multi-detector CT scanner. Data acquisition was obtained from the skull base through the vertex following intravenous administration of IV 100mL Isovue-370. MIP images were reconstructed from the axial data set. Post-processing of the angiographic images was performed, with multiplanar reformation and 3D reconstruction. Individualized dose optimization techniques were used for this CT. COMPARISON: No relevant priors. FINDINGS: Normal bilateral petrous carotid arteries. Normal right cavernous carotid artery with a normal supraclinoid bifurcation. Normal left cavernous carotid artery with a normal supraclinoid bifurcation. Normal right A1 segments of the anterior cerebral artery. Normal left A1 segments of the anterior cerebral artery. Anterior communicating artery not visualized consistent with normal variant). Normal bilateral A2 segments of the anterior cerebral arteries. Normal right M1 and M2 segments of the middle cerebral arteries, with a normal M1 bifurcation. Normal left M1 and M2 segments of the middle cerebral arteries, with a normal M1 bifurcation. Posterior communicating arteries are not visualized consistent with normal variant Normal bilateral vertebral arteries. Normal basilar artery with a normal basilar bifurcation. The visualized bilateral superior cerebellar (SCA) arteries are normal. Normal bilateral P1, P2 and visualized P3 segments of the posterior cerebral arteries. There is no demonstrated aneurysm of the [place]. AORTIC ARCH: Normal visualized aortic arch. Normal origins of the brachiocephalic, left common carotid, and left subclavian arteries. RIGHT CAROTID ARTERIES: Normal right common carotid artery (CCA). Normal right common carotid bulb. Normal origin of the right internal carotid (ICA) artery without a hemodynamically significant stenosis. Normal visualized cervical portion of the right internal carotid artery. Normal origin of the right external carotid artery (ECA). LEFT CAROTID ARTERIES: Normal left common carotid artery (CCA). Normal left common carotid bulb. Normal origin of the left internal carotid (ICA) artery without a hemodynamically significant stenosis. Normal visualized cervical portion of the left internal carotid artery. Normal origin of the left external carotid artery (ECA). VERTEBRAL ARTERIES: Normal bilateral vertebral arteries. CT/STROKE CTA Head AND Neck W/Con IMPRESSION: Normal CTA Head and neck with contrast. Electronically Signed: Juan Wei MD at 21:47 EDT ,
--- NOTE | 2024-03-29 21:21 | EDS_ITS ---
HPI History of Present Illness Chief Complaint: Stroke Alert Detail of Chief Complaint: Paresthesias Informant: patient Onset/Context/Timing Onset: Today Narrative Narrative: Patient presents at 9:15 PM for evaluation of left upper extremity, left face paresthesias that started around 8 PM. Patient states that she does have bad seasonal allergies. She took Sudafed this morning and a dose of Benadryl this evening. She noted numbness and tingling in her left upper extremity, left shoulder, left face. She denies difficulty speaking. She states that she did feel somewhat off balance when she was walking. [facility] Medical History Alcohol use Anxiety Smoker Wears contact lenses Home Medications multivitamin 1 tab PO DAILY 12/12/21 [History Last Taken Unknown] alprazolam 0.25 mg tablet (Xanax) 0.25 mg PO .prn 10/24/22 [History Last Taken Unknown] levonorgestrel 20.4 mcg/24 hr (up to 8 yrs) 52 mg intrauterine device (Liletta) 1 device intrauterine ONCE 03/18/23 [History Last Taken Unknown] Allergy/AdvReac Type Severity Reaction Status Date / Time No Known Allergies Allergy Verified 12/31/23 08:14 Family History Father Hypertension Grandfather Cancer Grandmother Cancer Surgical History History of cervical polypectomy (~02/25/23) Social History number of children: 1 current occupational status: employed current occupation: [employer]formerly [employer]) Smoking Status: Light Smoker (<10/day) Tobacco: How many years used: 12 alcohol intake: current alcohol intake frequency: holidays/special occasions only substance use type: does not use 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 do you feel safe at home: Yes additional social history: [employer] and 2-Observe ROS ROS ED Constitutional Constitutional ED: Denies chills or fever(s) Eyes Eyes: Denies change in vision or discharge from eye(s) ENT ENT ED: Denies discharge from eye(s), rhinorrhea or sore throat Cardiovascular Cardiovascular: Denies chest pain or palpitations Respiratory/Chest Respiratory/Chest: Denies cough or dyspnea Gastrointestinal Gastrointestinal: Denies abdominal pain, nausea or vomiting Genitourinary Genitourinary ED: Denies dysuria Musculoskeletal Musculoskeletal: Denies back pain or extremity pain Integumentary Denies Abrasions or rash Neurologic Neurologic: Reports paresthesias; Denies headache(s) or weakness Psychiatric Psychiatric: Denies anxiety or depression Allergic/Immunologic Allergic/Immunologic ED: Denies lip swelling or urticaria EXAM Physical Exam Const Vital Signs: 03/29/24 21:10 03/29/24 21:19 03/29/24 21:32 Temperature 97.1 F L Temperature Source Temporal Pulse Rate 106 H 94 Respiratory Rate 16 12 Respiratory Effort Respiratory Pattern Blood Pressure 185/109 H 152/87 H Blood Pressure Mean 134 108 Pulse Ox 99 99 Oxygen Delivery Method Room Air Room Air 03/29/24 21:33 03/29/24 21:43 Temperature 97.1 F L Temperature Source Temporal Pulse Rate 106 H Respiratory Rate 16 Respiratory Effort Normal Non-Labored Respiratory Pattern Normal Blood Pressure 185/109 H Blood Pressure Mean 134 Pulse Ox 99 Oxygen Delivery Method Room Air Positive well nourished and well developed General Appearance ED: well developed HEENT Reports moist mucous membranes Eyes EOMs intact bilaterally Chest Wall inspection of chest normal and palpation of chest normal Resp normal respiratory effort and clear to auscultation bilaterally Cardio Rate: regular rate Rhythm: regular rhythm GI soft to palpation and non-tender Extremity normal to inspection Neuro oriented x3 Psych mental status grossly normal NIHSS NIHSS Initial: 1a Level of Consciousness: 0 1b LOC Questions (Score 2 if aphasic/stupor): 0 1c LOC Commands (Only score 1st attempt): 0 2 Best Gaze (If aphasic, use reflexive mvmts.): 0 3 Visual: 0 4 Facial Palsy: 0 5 Motor Arm Right (UN = amputation/fusion): 0 5 Motor Arm Left: 0 6 Motor Leg Right: 0 6 Motor Leg Left: 0 7 Limb ataxia (Only + if out of proportion): 0 8 Sensory (Aphasia/stupor=0 or 1, coma=2): 1 9 Best Language: 0 10 Dysarthria (mute, coma=2, intubated=UN): 0 11 Extinction and Inattention (only scored if +): 0 Total Score: 1 MDM MDM MDM Narrative Medical decision making narrative: Patient was seen in triage as a stroke alert. Patient sent immediately to CT for CT of the brain along with CTA of the head and neck. EKG obtained to evaluate for cardiac arrhythmia/ischemia. Labwork obtained to evaluate for leukocytosis, anemia, and electrolyte derangement. History & Record Review Discussion w/independent historian: Patient Lab Data Attestation: I reviewed the patient's lab results. Labs: Laboratory Results - last 24 hr 03/29/24 21:19 WBC 10.3 RBC 4.87 Hgb 14.5 Hct 43.5 MCV 89.3 MCH 29.8 MCHC 33.3 RDW Std Deviation 40.7 RDW Coeff of Abigail 12.4 Plt Count 305 MPV 9.5 Immature Gran % (Auto) 0.300 Neut % (Auto) 56.3 Lymph % (Auto) 32.0 [place] % (Auto) 7.6 Eos % (Auto) 3.1 Baso % (Auto) 0.7 Absolute Neuts (auto) 5.8 Absolute Lymphs (auto) 3.30 Nucleated RBC % 0 PT 13.1 INR 1.0 APTT 27.5 Sodium 138 Potassium 3.7 Chloride 104 Carbon Dioxide 27.0 Anion Gap 7 BUN 12 Creatinine 0.93 Estim Creat Clear Calc 95.17 Est GFR (MDRD) Af Amer 87 Est GFR (MDRD) Non-Af 72 BUN/Creatinine Ratio 13.0 Glucose 110 H Calcium 8.9 Troponin I High Sens 4 Serum , Qual NEGATIVE Radiography Chest X-Ray - ED: 1 View, Read by ED Physician, Normal, Heart, Lungs and Mediastinum Diagnostic Testing: Clinical Impression(s) from Imaging Studies Brain CT 03/29/24 21:19 IMPRESSION: No acute intracranial hemorrhage in this noncontrast head CT. Electronically Signed: Jordin Baptiste MD at 21:37 EDT , ADDENDUM: 03/29/24 3856 IMPRESSION: No acute intracranial hemorrhage in this noncontrast head CT. N.B. : The above Results were Read Back by Jordin Baptiste MD to Sandra Rivera MD, and understanding confirmed on 03/29/2024 21:52:34 (ET). Electronically Signed: Jordin Baptiste MD at 21:37 EDT , ADDENDUM: 03/29/24 2200 IMPRESSION: undefined Head/Neck CTA 03/29/24 21:19 IMPRESSION: Normal CTA Head and neck with contrast. Electronically Signed: Juan Wei MD at 21:47 EDT , ADDENDUM: 03/29/24 2155 IMPRESSION: Normal CTA Head and neck with contrast. N.B. : The above Results were Read Back by Juan Wei MD to Sanrda Rivera MD, and understanding confirmed on 03/29/2024 21:48:55 (ET). Electronically Signed: Juan Wei MD at 21:47 EDT , EKG Initial EKG: Attestation: I personally reviewed and interpreted this EKG as follows: Interpretation: Sinus Rhythm (Sinus at 87 with 1/[address] depression in the inferior and lateral leads.) Treatment and Re-Evaluation Narrative: CBC was normal white count at 10.3 with a hemoglobin of 14.5. Differential unremarkable. Coags are normal. Chemistry studies are unremarkable with normal renal function. Troponin is normal at 4 and test is negative. Portable chest x-ray per my interpretation reveals no acute findings. Noncontrast head CT reveals no acute intracranial hemorrhage. CTA of the head and neck reveals no acute abnormalities. EKG per my interpretation reveals sinus rhythm 87 bpm with nonspecific 1/[address] depression in the inferior and lateral leads. Patient was evaluated by stroke neurologist from [facility]. Given her low NIH score she is not a candidate for TNK at this time. She did advise that if the CTA was unremarkable she can stay here for remainder of stroke workup. Test results discussed with patient and spouse at bedside. I will speak with hospitalist regarding admission. Discharge Plan Triage Chief Complaint: Stroke Alert Other Complaint: General Illness ED Provider: Sandra Rivera Dx/Rx/DC Orders Clinical Impression: Paresthesias, Stroke-like symptom Prescriptions: No Action multivitamin Tablet 1 tab PO DAILY alprazolam [Xanax] 0.25 mg tablet 0.25 mg PO .prn Liletta 20.4 mcg/24 hrs (8 yrs) 52 mg intrauterine device 1 device intrauterine ONCE Rx Instructions: as a single dose Primary Care Provider: Margret Brownlee Referrals: Margret Brownlee PA [Primary Care Provider] - Disposition Disposition: Acute Care Hospital [facility]
[2024-03-29 21:27] LABS: Absolute Neutrophil Count 5.8 X10^3/uL (2.0-7.7); Basophil# 0.07 X10^3/uL; Basophil% 0.7 % (0-1); Eosinophil# 0.32 X10^3/uL; Eosinophils% 3.1 % (0-5); Hematocrit 43.5 % (37-47); Hemoglobin 14.5 g/dL (12.0-15.0); Mean Corp Hgb Conc 33.3 g/dL (32-36); Mean Corpuscular Hgb 29.8 pg (27.0-32.0); Mean Corpuscular Volume 89.3 fL (81-99); Mean Platelet Vol. 9.5 fl (6.2-12.0); Monocyte# 0.78 X10^3/uL; Monocyte% 7.6 % (0-10); NRBC Flagged by Analyzer 0 % (0-5); Neutrophil % 56.3 % (47-70); Platelet Count 305 K/mm3 (150-450); RBC Distribution Width CV 12.4 % (11.6-14.6); RBC Distribution Width SD 40.7 fl (35.1-43.9); Red Blood Count 4.87 M/mm3 (4.2-5.4); White Blood Count 10.3 K/mm3 (4.4-11.0)
[2024-03-29 21:32] VITALS: BP 152/87; PULSE 94; RESP 12; O2SAT 99
[2024-03-29 21:34] VITALS: BMI 33.5
[2024-03-29 21:36] LABS: Prothrombin Time (Protime)PT. 13.1 SECONDS (11.7-14.9)
[2024-03-29 21:37] LABS: Partial Thromboplast Time 27.5 Seconds (24.1-36.2)
[2024-03-29 21:41] LABS: Internal QC Validated? YES +Cl - CLEAR BKGD; Pregnancy, Serum, hCG Quali. NEGATIVE Negative
[2024-03-29 21:43] VITALS: BP 185/109; PULSE 106; RESP 16; TEMP 36.2; O2SAT 99
--- NOTE | 2024-03-29 21:45 | RAD_ITS ---
INDICATION: Neuro deficit, acute, stroke suspected EXAMINATION/TECHNIQUE: X-RAY - XR Chest 1 View COMPARISON: None. Findings: 2 frontal views of the chest. LUNG PARENCHYMA: No acute focal airspace disease or mass lesion. PLEURA: No pleural effusion. No pneumothorax. HEART/GREAT VESSELS: Cardiomediastinal silhouette is unremarkable. BONES: Osseous structures are unremarkable for age. RAD/Chest 1 View IMPRESSION: Chest with no acute disease. Electronically Signed: Jordin Baptiste MD at 22:55 EDT ,
[2024-03-29 21:48] LABS: Anion Gap 7 (5-15); BUN 12 mg/dL (7-18); Calcium,Total 8.9 mg/dL (8.5-10.1); Chloride 104 mmol/L (98-107); Creatinine, Serum 0.93 mg/dL (0.55-1.02); EST Glomerular Filtration Rate 72 mL/min (>60); Est Glom Filt Rate - Afr Amer 87 mL/min (>60); Estimated Creatinine Clearance 95.17 ml/min; Glucose 110 mg/dL (74-106); Potassium 3.7 mmol/L (3.5-5.1); Sodium Level 138 mmol/L (136-145); Troponin-I HS 4 pg/mL (3.0-54.0)
[2024-03-29 22:15] VITALS: BP 127/79; PULSE 89; RESP 16; O2SAT 99
--- NOTE | 2024-03-29 22:20 | PCM.HP.STD ---
[facility] - General General Date of Admission: 03/29/24 Date of Service: 03/29/24 Chief Complaint: Left-sided Paresthesias. HPI Narrative CODY SANTO, is a 38 F with a past medical history of tobacco abuse, obesity; with BMI of 33.6 this admission, generalized anxiety; on as needed Xanax, severe seasonal allergies, history of migraine with aura, history of IUD placement (with levonorgestrel), history of irregular menses and infertility and history of HPV infection; s/p cervical polypectomy who presents to [facility] ER complaining of Left-sided paresthesias. Ms. Santo reports her symptoms began at approximately 1 hour prior to arrival with the abrupt onset of paresthesias in her left face and arm. She also admitted to feeling somewhat off balance when she was walking. She admits to taking a dose of Sudafed this morning followed by a dose of Benadryl this evening but she denies any other recent medications. She denies associated fever, chills, nausea, vomiting, diaphoresis, headache, focal neurologic weakness or similar previous episodes. In the ER she was noted to have a normal CTA of the head and neck with contrast and a chest x-ray that was also negative for acute pathologic processes and she was then admitted to the PCU under observation status to complete a stroke workup for stay that is expected to be less than 2 midnights. [facility] Medical History Asthma Migraines Wears contact lenses Anxiety Alcohol use Smoker Home Medications multivitamin 1 tab PO DAILY 12/12/21 [History Last Taken Unknown] alprazolam 0.25 mg tablet (Xanax) 0.25 mg PO .prn 10/24/22 [History Last Taken Unknown] levonorgestrel 20.4 mcg/24 hr (up to 8 yrs) 52 mg intrauterine device (Liletta) 1 device intrauterine ONCE 03/18/23 [History Last Taken Unknown] Allergy/AdvReac Type Severity Reaction Status Date / Time No Known Allergies Allergy Verified 12/31/23 08:14 Family History Father Hypertension Grandfather Cancer Grandmother Cancer Surgical History History of cervical polypectomy (~02/25/23) Social History number of children: 1 current occupational status: employed current occupation: [employer] and [employer] Smoking Status: Light Smoker (<10/day) Tobacco: How many years used: 12 alcohol intake: current alcohol intake frequency: holidays/special occasions only substance use type: does not use 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 HENT: Denies headache, denies stuffy nose, denies sore throat EYES: Denies changes in vision or discharge from eyes. Resp: Denies cough, denies shortness of breath Cardiac: Denies chest pain, palpitations or heart racing. GI: Denies abdominal pain, denies changes in bowel, denies nausea or vomiting. : Denies changes in urination Extremity: Denies swelling Musculoskeletal: Patient denies arthralgias or myalgias. Neuro: Patient admits to paresthesias affecting her Left face and Left arm but she denies headache or focal neurologic weakness. Heme: Denies any bleeding or bruising Skin: Denies rashes Psychiatric: Patient states her anxiety is controlled with her as needed Xanax which is prescribed by psychiatrist. Endocrine: No polyuria, polydipsia or polyphagia. The rest of the 14 point ROS was negative except for positives in HPI. Vital Signs Vital Signs Vital Signs: 03/29/24 21:10 03/29/24 21:19 03/29/24 21:32 Temperature 97.1 F L Temperature Source Temporal Pulse Rate 106 H 94 Respiratory Rate 16 12 Respiratory Effort Respiratory Pattern Blood Pressure 185/109 H 152/87 H Blood Pressure Mean 134 108 Pulse Ox 99 99 Oxygen Delivery Method Room Air Room Air 03/29/24 21:33 03/29/24 21:43 Temperature 97.1 F L Temperature Source Temporal Pulse Rate 106 H Respiratory Rate 16 Respiratory Effort Normal Non-Labored Respiratory Pattern Normal Blood Pressure 185/109 H Blood Pressure Mean 134 Pulse Ox 99 Oxygen Delivery Method Room Air Weight Weight: 209 lb 0.007 oz Body Mass Index (BMI) 33.5 Physical Exam Const alert, oriented x3, no apparent distress, average body habitus and healthy appearing General Appearance: cooperative HEENT normocephalic, head/scalp atraumatic, hearing grossly normal bilaterally and moist oral mucous membranes Eyes PERRL and EOMs intact bilaterally Neck no lymphadenopathy and supple Resp normal respiratory effort, no retractions, no use of accessory muscles and clear to auscultation bilaterally Cardio regular rate and regular rhythm GI normal to inspection, nondistended, normoactive bowel sounds, soft to palpation, non-tender and non-distended Extremity normal to inspection and full ROM Skin Skin Narrative: Patient has no evidence of rash. Neuro oriented x3, CN's II-XII intact bilaterally, moves all extremities and no focal motor deficits Sensorium / Orientation: awake, alert, oriented to person, oriented to place and oriented to time Speech: speech normal Motor Exam: strength 5/5 throughout Psych affect normal Results Medical Records Data Attestation: I reviewed the patient's medical records Lab / Micro Data Attestation: I reviewed the patient's lab results. 03/30/24 05:00 03/29/24 21:19 Labs: Laboratory Results - last 24 hr 03/29/24 21:19: WBC 10.3, RBC 4.87, Hgb 14.5, Hct 43.5, MCV 89.3, MCH 29.8, MCHC 33.3, RDW Std Deviation 40.7, RDW Coeff of Abigail 12.4, Plt Count 305, MPV 9.5, Immature Gran % (Auto) 0.300, Neut % (Auto) 56.3, Lymph % (Auto) 32.0, [place] % (Auto) 7.6, Eos % (Auto) 3.1, Baso % (Auto) 0.7, Absolute Neuts (auto) 5.8, Absolute Lymphs (auto) 3.30, Nucleated RBC % 0, PT 13.1, INR 1.0, APTT 27.5, Sodium 138, Potassium 3.7, Chloride 104, Carbon Dioxide 27.0, Anion Gap 7, BUN 12, Creatinine 0.93, Estim Creat Clear Calc 95.17, Est GFR (MDRD) Af Amer 87, Est GFR (MDRD) Non-Af 72, BUN/Creatinine Ratio 13.0, Glucose 110 H, Calcium 8.9, Troponin I High Sens 4, Serum , Qual NEGATIVE Imaging Radiology Impression Brain CT 03/29/24 21:19 IMPRESSION: No acute intracranial hemorrhage in this noncontrast head CT. Electronically Signed: Jordin Baptiste MD at 21:37 EDT , ADDENDUM: 03/29/24 2159 IMPRESSION: No acute intracranial hemorrhage in this noncontrast head CT. N.B. : The above Results were Read Back by Jordin Baptiste MD to Sandra Rivera MD, and understanding confirmed on 03/29/2024 21:52:34 (ET). Electronically Signed: Jordin Baptiste MD at 21:37 EDT , ADDENDUM: 03/29/24 2200 IMPRESSION: undefined Head/Neck CTA 03/29/24 21:19 IMPRESSION: Normal CTA Head and neck with contrast. Electronically Signed: Juan Wei MD at 21:47 EDT , ADDENDUM: 03/29/24 2155 IMPRESSION: Normal CTA Head and neck with contrast. N.B. : The above Results were Read Back by Juan Wei MD to Sandra Rivera MD, and understanding confirmed on 03/29/2024 21:48:55 (ET). Electronically Signed: Juan Wei MD at 21:47 EDT , Assessment & Plan Assessment/Plan (1) Stroke-like symptom: (2) Paresthesias: (3) Anxiety: (4) Migraine with aura: QUALIFIERS: Intractability: not intractable Status migrainosus presence: without status migrainosus Qualified Code(s): G43.109 - Migraine with aura, not intractable, without status migrainosus (5) IUD (intrauterine device) in place: (6) Cervical high risk HPV (human papillomavirus) test positive: (7) Irregular menses: PLAN: Plan 1. Paresthesias of the left face and left upper extremity concerning for possible TIA/CVA - Admit to PCU under observation status. Check MRI of the brain to evaluate for possible CVA. Check echocardiogram to evaluate LVEF. Check carotid Doppler to evaluate for stenosis. Check lipid profile, hemoglobin A1c and TSH to complete her metabolic workup. Continue aspirin and add statin. Finally, we will consult [facility] to see this patient for further recommendations with help appreciated. 2. Tobacco abuse - Tobacco cessation will be strongly encouraged with nicotine patch offered to control cravings. 3. Obesity; with BMI of 33.6 this admission - Weight loss will be recommended. 4. History of IUD placement (with levonorgestrel) - Since this patient is almost 40 and a smoker with a history of obesity there may be increased risk of cardiovascular events. If symptoms persist this device may need to be removed and alternative forms of control may need to be pursued. 5. Severe seasonal allergies; with recent administration of Sudafed and Benadryl as noted in HPI - It is possible patient may be having side effects from these medications causing #1. Once workup is completed if there is no other obvious cause patient will be encouraged to use alternative agents to manage her allergies. 6. Generalized anxiety; on as needed Xanax - Continue as needed Xanax as previous. 7. History of migraine with aura - Stable with no report of headache at this time. 8. History of irregular menses and infertility - Noted. 9. History of of HPV infection; s/p cervical polypectomy - Noted. 10. DVT prophylaxis - Lovenox 40 mg subcu daily. Total time: Approximately 85 minutes. Charges/Coding Visit Charges OBSV E&M: 70883 Observ/hosp same date L3
[2024-03-29 22:36] VITALS: BP 127/79; PULSE 89; RESP 16; TEMP 36.7; O2SAT 99
[2024-03-29 23:07] VITALS: BP 115/75; PULSE 78; RESP 12; O2SAT 99
--- NOTE | 2024-03-29 23:30 | CDU_ITS ---
Reason For Study: Left sided parasthesis Rt. Velocities/BP Lt. Velocities/BP Prox CCA 84.4/20.1 cm/sec. Prox CCA 94.9/27.8 cm/sec. Mid CCA 81.5/23 cm/sec. Mid CCA 93.8/24.5 cm/sec. Dist CCA 71.1/20.1 cm/sec. Dist CCA 83.9/22.3 cm/sec. Prox ICA 50.4/22 cm/sec. Prox ICA 75.3/21.2 cm/sec. Mid ICA 75.9/30.5 cm/sec. Mid ICA 80.7/27.7 cm/sec. Dist ICA 78.7/37.1 cm/sec. Dist ICA 86.3/40.9 cm/sec. Rt. ICA/CCA = 0.97. Lt. ICA/CCA = 0.92. Prox ECA 77.8/10.7 cm/sec. Prox ECA 87.2/17.9 cm/sec. Rt. Vert. 57.9/17 cm/sec. Lt. Vert. 51.3/19.2 cm/sec. Right Extracranial There is intimal thickening but no significant atherosclerotic plaque noted in the right common carotid artery. There is intimal thickening but no significant atherosclerotic plaque noted in the right internal carotid artery. There is intimal thickening but no significant atherosclerotic plaque noted in the right external carotid artery. Antegrade flow is noted in the right vertebral artery. Left Extracranial There is intimal thickening but no significant atherosclerotic plaque noted in the left common carotid artery. There is intimal thickening but no significant atherosclerotic plaque noted in the left internal carotid artery. There is intimal thickening but no significant atherosclerotic plaque noted in the left external carotid artery. Antegrade flow is noted in the left vertebral artery. Procedure Carotid Duplex [id number]. This is a Carotid Duplex examination using B-mode, color flow and specral Doppler. Exam performed portable in patient room. VL/Carotid Duplex Ultrasound Interpretation Summary Normal right extracranial internal carotid. Normal left extracranial internal carotid. Patent and antegrade vertebrals bilaterally. Ordering Physician: Js Fields Referring Physician: Margret Brownlee Performed By: Adrienne Spivey RVT
--- NOTE | 2024-03-29 23:30 | MRI_ITS ---
EXAM: MR HEAD WITHOUT INTRAVENOUS CONTRAST CLINICAL INDICATION: Left facial and left upper extremity paresthesias. TECHNIQUE: Multiplanar and multisequence MR images of the brain were obtained without intravenous contrast. COMPARISON: CT head without contrast and CTA head and neck with contrast 03/29/2024. FINDINGS: BRAIN AND EXTRA-AXIAL SPACES: No diffusion restriction to suspect acute or subacute ischemic infarct. No focal signal abnormalities throughout the brain parenchyma in all pulse sequences. No intra- or extra-axial hemorrhage. No evidence of acute infarct. No intracranial mass or mass effect. There is preservation of the kuhn/white matter interface. Posterior fossa structures are unremarkable. Ventricles are appropriate for age. No hydrocephalus. Basal cisterns are patent. SELLA: Unremarkable. Normal sella turcica, pituitary gland, infundibular stalk, optic chiasm and hypothalamus. AUDITORY SYSTEM: Unremarkable. The internal auditory canals are patent. BONES/JOINTS: Unremarkable. No discrete lytic or blastic abnormalities. SINUSES: Unremarkable as visualized. Clear. MASTOID AIR CELLS: Unremarkable as visualized. Clear. ORBITS: Unremarkable as visualized. Both globes, extraocular muscles, optic nerves and retrobulbar fat appear unremarkable. VASCULATURE: Unremarkable as visualized. Normal flow voids in the major intracranial circulation. MRI/Brain without Contrast IMPRESSION: Negative MRI brain without intravenous contrast. Electronically Signed: Michael Burgess MD at 11:19 EDT ,
--- NOTE | 2024-03-29 23:30 | ECHOD_ITS ---
Reason For Study: TIA/CVA Procedure This was a 2D Doppler, Color Flow transthoracic echocardiogram. Exam performed portable in patient room. Left Ventricle Normal LV size. Left ventricular systolic function is normal. The estimated ejection fraction is 60 %. Normal diastololic function. Right Ventricle Normal RV size. Normal systolic function. Atria The left and right atria are normal. Bubble contrast study negative for right to left interatrial shunt. Mitral Valve The mitral valve is structurally normal. No prolapse or stenosis seen. Trivial mitral valve insufficiency. Tricuspid Valve Normal tricuspid valve. Trivial tricuspid valve insufficiency. Pulmonary artery systolic pressure is 21 mmHg. Aortic Valve Trisinus/trileaflet aortic valve. Pulmonic Valve Normal pulmonic valve. Trivial pulmonic valve insufficiency. Great Vessels Normal aortic root. Pericardium/Pleural No pericardial effusion. Medication Performed a rapid injection of agitated mix of 9 cc saline and 1cc air to assess for atrial septal defect. MMode/2D Measurements & Calculations LVIDd: 4.5 cm IVSd: 1.1 cm Ao root diam: 3.0 cm LVIDs: 2.7 cm LVPWd: 0.87 cm LA dimension: 3.6 cm FS: 38.9 % LAV(MOD-bp): 50.0 ml LVAd ap4: 24.9 cm2 SV(MOD-sp4): 46.0 ml LAV(MOD-bp) Indexed: 24.7 ml/m2 LVLd ap4: 6.9 cm LAV(MOD-sp2): 52.6 ml EDV(MOD-sp4): 74.3 ml LAV(MOD-sp4): 42.2 ml EDV(sp4-el): 76.7 ml LVAs ap4: 13.7 cm2 LVLs ap4: 5.5 cm ESV(MOD-sp4): 28.3 ml ESV(sp4-el): 29.0 ml EF(MOD-sp4): 61.9 % EF(sp4-el): 62.2 % SV(sp4-el): 47.7 ml LA A4 area: 17.0 cm2 Time Measurements MV dec time: 0.22 sec Doppler Measurements & Calculations MV E max dwaine: 83.3 cm/sec Lat Peak E' Dwaine: 14.0 cm/sec Med Peak E' Dwaine: 13.6 cm/sec MV A max dwaine: 50.6 cm/sec E/E' lat: 5.9 E/E' med: 6.1 MV E/A: 1.6 MV V2 max: 93.1 cm/sec MV P1/2t max dwaine: 93.7 cm/sec Ao V2 max: 99.3 cm/sec MV max P.5 mmHg MV P1/2t: 77.2 msec Ao max P.9 mmHg MV V2 mean: 43.4 cm/sec Ao V2 mean: 68.5 cm/sec MV mean P.94 mmHg MV dec slope: 355.8 cm/sec2 Ao mean P.2 mmHg MV V2 VTI: 28.7 cm MVA(P1/2t): 2.9 cm2 Ao V2 VTI: 23.6 cm AV (velocity ratio): 1.0 LV V1 max: 101.5 cm/sec PA V2 max: 93.6 cm/sec TR max dwaine: 210.5 cm/sec LV V1 max P.1 mmHg PA V2 mean: 65.7 cm/sec TR max P.7 mmHg LV V1 mean P.4 mmHg LV V1 mean: 71.9 cm/sec LV V1 VTI: 24.3 cm ECHO/Echo Complete Interpretation Summary The estimated ejection fraction is 60 %. Normal diastololic function. Bubble contrast study negative for right to left interatrial shunt. Structurally normal valves. Ordering Physician: Js Fields Performed By: Miguel Gorman RCS
[2024-03-29 23:50] LABS: Alcohol, Blood (Medical)-Serum < 3.0 mg/dL
[2024-03-30 00:02] LABS: Thyroid Stim Hormone (TSH) 4.44 uIU/mL (0.358-3.74)
[2024-03-30 00:09] VITALS: BMI 33.2
[2024-03-30 00:10] VITALS: BP 118/68; PULSE 78; RESP 16; TEMP 36.6; O2SAT 97
[2024-03-30] MEDS: Atorvastatin Calcium 80 MG Tablet PO (00:36)
[2024-03-30] MEDS: Aspirin 81 MG TAB.CHEW PO ×2 (00:36→08:08)
[2024-03-30] MEDS: 0.9% Normal Saline (1000mL) 1,000 ML 70 ML IV (01:09)
[2024-03-30] MEDS: 0.9% Saline Lock 10 ML Syringe IV (01:09)
[2024-03-30 01:25] VITALS: BMI 33.2
[2024-03-30 01:25] LABS: Hemoglobin A1c 4.9 % (3.8-5.6)
[2024-03-30 04:10] VITALS: BP 100/58; PULSE 68; RESP 16; TEMP 36.2; O2SAT 98
[2024-03-30 05:39] LABS: Absolute Lymphocyte Count 2.67 X10^3/uL (0.83-4.51); Absolute Neutrophil Count 5.1 X10^3/uL (2.0-7.7); Basophil# 0.05 X10^3/uL; Basophil% 0.6 % (0-1); Eosinophil# 0.33 X10^3/uL; Eosinophils% 3.7 % (0-5); Hematocrit 40.9 % (37-47); Lymphocyte # 2.67 X10^3/ul (0.83-4.51); Lymphocyte % 29.9 % (19-41); Mean Corp Hgb Conc 34.2 g/dL (32-36); Mean Corpuscular Hgb 30.5 pg (27.0-32.0); Mean Corpuscular Volume 89.1 fL (81-99); Mean Platelet Vol. 9.7 fl (6.2-12.0); NRBC Flagged by Analyzer 0 % (0-5); Neutrophil # 5.06 X10^3/uL (2.7-7.7); Neutrophil % 56.6 % (47-70); Platelet Count 272 K/mm3 (150-450); RBC Distribution Width CV 12.4 % (11.6-14.6); RBC Distribution Width SD 40.5 fl (35.1-43.9); Red Blood Count 4.59 M/mm3 (4.2-5.4); White Blood Count 8.9 K/mm3 (4.4-11.0)
[2024-03-30 06:13] LABS: AST(SGOT) 21 U/L (15-37); Alanine Aminotransfer ALT/SGPT 45 U/L (13-56); Albumin, Serum 3.5 g/dL (3.2-5.0); Alkaline Phosphatase 67 U/L (45-117); Anion Gap 6 (5-15); BUN 11 mg/dL (7-18); BUN/Creat Ratio 14.2 RATIO (10-20); Calcium,Total 8.6 mg/dL (8.5-10.1); Chloride 108 mmol/L (98-107); Cholesterol 191 mg/dL (200); Creatinine, Serum 0.77 mg/dL (0.55-1.02); EST Glomerular Filtration Rate 88 mL/min (>60); Est Glom Filt Rate - Afr Amer 107 mL/min (>60); Estimated Creatinine Clearance 114.07 ml/min; Globulin 3.4 g/dL (2.2-4.2); Glucose 90 mg/dL (74-106); High Density Lipoprotein 45 mg/dL; Potassium 3.8 mmol/L (3.5-5.1); Protein, Total 6.9 g/dL (6.4-8.2); Sodium Level 140 mmol/L (136-145); Triglycerides 132 mg/dL; Very Low Density Lipoprotein 26 mg/dL (5-40)
[2024-03-30 06:24] LABS: T4 Free Direct 0.93 ng/dL (0.76-1.46)
[2024-03-30 07:25] VITALS: O2SAT 98
[2024-03-30 08:00] VITALS: BP 95/60; PULSE 67; RESP 18; TEMP 36.3; O2SAT 98
[2024-03-30] MEDS: Multivitamins,Therapeutic Tablet 1 TABLET PO (08:08)
--- NOTE | 2024-03-30 12:14 | DCINST_ITS ---
Discharge Instructions Diet Discharge Diet: No restrictions Activity Discharge Activity: Return to Normal Activity Follow Up Care Test Results: Test results from this visit will be discussed in further detail at your follow- up appointment, if applicable. Discharge Plan Admission Admit Date/Time: 03/29/24 23:25 Primary Reason for Your Visit: Left arm paresthesias, left facial paresthesia Attending Provider: John Acuña Primary Care Provider: Margret Brownlee Consulting Providers: Danny Stephens; Jose Alejandro Khan; Clair Sexton; Nazia Almeida; Angélica Hussein; Grant Farias; Soco Ndiaye; Indra Cordero; Walker Chambers; Marlene Sullivan; Francisco Jon; Dinorah Meyer; Guy Collier; Walt Guzmán; Elan Aguilar; Raven Lorenzana; Gianluca Mccormack; Marlene Anders; Fred Diaz; Js Fields Discharge Orders/Prescriptions Prescriptions: Continued multivitamin Tablet 1 tab PO DAILY alprazolam [Xanax] 0.25 mg tablet 0.25 mg PO .prn Liletta 20.4 mcg/24 hrs (8 yrs) 52 mg intrauterine device 1 device intrauterine ONCE Rx Instructions: as a single dose Referrals / Follow Up: Margret Brownlee PA [Primary Care Provider] - Within 2 Weeks (For follow-up) Disposition Disposition (needs filled in before D/C Order can be placed): Home, Self Care
--- NOTE | 2024-03-30 12:17 | DS.PCM_ITS ---
Providers Date of Admission: 03/29/24 Date of Discharge: 03/30/24 Primary Care Physician: RAJI Luis Consultations 03/30/24 00:09 Consult: Tele-Neurology Routine Consulting Provider: [facility] Reason for Consult: Acute Ischemic Stroke/TIA EMERGENT Consult: No MD Notified: Yes Date Notified: 03/30/24 Time Notified: 01:35 Method of Notification: ED Physician Initiated Method of Consult:: Telemedicine Nursing Unit Staff Notify [facility] of Tele-Neurology Consult: Yes Reason For Visit: TIA VERSUS CVA; WITH LEFT FACIAL AND LEFT UPPER Diagnosis Discharge Diagnosis (1) Stroke-like symptom: Status: Acute Code(s): R29.90 - Unspecified symptoms and signs involving the nervous system (2) Paresthesias: Status: Acute Code(s): R20.2 - Paresthesia of skin (3) Anxiety: Status: Acute Code(s): F41.9 - Anxiety disorder, unspecified (4) Migraine with aura: Status: Acute Code(s): G43.109 - Migraine with aura, not intractable, without status migrainosus Qualifiers: Intractability: not intractable Status migrainosus presence: without status migrainosus Qualified Code(s): G43.109 - Migraine with aura, not intractable, without status migrainosus (5) IUD (intrauterine device) in place: Status: Acute Code(s): Z97.5 - Presence of (intrauterine) contraceptive device (6) Cervical high risk HPV (human papillomavirus) test positive: Status: Acute Code(s): R87.810 - Cervical high risk human papillomavirus (HPV) DNA test positive (7) Irregular menses: Status: Acute Code(s): N92.6 - Irregular menstruation, unspecified Plan Final diagnosis: #1 paresthesias of the left arm-etiology unclear #2 paresthesias of the left face-etiology unclear #3 chronic anxiety Medications at Discharge Home Medications multivitamin 1 tab PO DAILY 12/12/21 alprazolam 0.25 mg tablet (Xanax) 0.25 mg PO .prn 10/24/22 levonorgestrel 20.4 mcg/24 hr (up to 8 yrs) 52 mg intrauterine device (Liletta) 1 device intrauterine ONCE 03/18/23 Hospital Course Operations None Procedures 2-D Echocardiogram and - (Carotid duplex ultrasound) Summary of Care Provided Minutes Spent on Discharge: 30 Hospital Course: This 38-year-old white female was seen in the emergency room at [facility] with complaints of left upper extremity and left facial paresthesias that started approximately an hour and 15 minutes before she was seen in the emergency room. Patient stated that she took Sudafed that morning and a dose of Benadryl in the evening, she denied difficulty speaking. A stroke alert was called in triage, CT of the brain was performed along with CTA of the head and neck these were unremarkable. Labs were obtained and they were unremarkable. Patient's NIH score was 1. Patient was placed in observation status on PCU, she underwent an MRI which was negative for stroke or intracranial process. Patient was seen by PT and OT, she had carotid duplex performed which was normal. On 03/30/2024, patient was seen and examined: On examination she appeared in good health and spirits, she does not appear to be in any distress. Vital signs as documented. Skin warm and dry and without overt rashes. Neck without JVD, thyroid appears normal, trachea is midline, neck is supple. Lungs clear, normal air movement was noted. Heart exam notable for regular rhythm, normal sounds and absence of murmurs, rubs or gallops. Abdomen unremarkable and without evidence of organomegaly, masses, or abdominal aortic enlargement, bowel sounds are present in all 4 quadrants, no abdominal tenderness was noted. Extremities nonedematous, no cyanosis was noted, no clubbing was noted. Neuro: Cranial nerves II through XII are grossly intact, no focal motor deficits were noted, sensation to light touch and pinprick is intact, motor exam 5/5 throughout. Psych: Patient is alert and oriented x3, she does not appear anxious or depressed, she does not appear agitated. Patient was discharged home in stable condition on 03/30/2024. Weight / BMI Weight Weight: 93.4 kg Body Mass Index (BMI) 33.2 ABG / Lab / Microbiology Data 03/30/24 05:00 03/30/24 05:00 Laboratory: Laboratory Results - last 24 hr 03/29/24 21:19: WBC 10.3, RBC 4.87, Hgb 14.5, Hct 43.5, MCV 89.3, MCH 29.8, MCHC 33.3, RDW Std Deviation 40.7, RDW Coeff of Abigail 12.4, Plt Count 305, MPV 9.5, Immature Gran % (Auto) 0.300, Neut % (Auto) 56.3, Lymph % (Auto) 32.0, [place] % (Auto) 7.6, Eos % (Auto) 3.1, Baso % (Auto) 0.7, Absolute Neuts (auto) 5.8, Absolute Lymphs (auto) 3.30, Nucleated RBC % 0, PT 13.1, INR 1.0, APTT 27.5, Sodium 138, Potassium 3.7, Chloride 104, Carbon Dioxide 27.0, Anion Gap 7, BUN 12, Creatinine 0.93, Estim Creat Clear Calc 95.17, Est GFR (MDRD) Af Amer 87, Est GFR (MDRD) Non-Af 72, BUN/Creatinine Ratio 13.0, Glucose 110 H, Hemoglobin A1c 4.9, Calcium 8.9, Troponin I High Sens 4, TSH 4.44 H, Serum , Qual NEGATIVE, Ethyl Alcohol < 3.0 03/30/24 05:00: WBC 8.9, RBC 4.59, Hgb 14.0, Hct 40.9, MCV 89.1, MCH 30.5, MCHC 34.2, RDW Std Deviation 40.5, RDW Coeff of Abigail 12.4, Plt Count 272, MPV 9.7, Immature Gran % (Auto) 0.200, Neut % (Auto) 56.6, Lymph % (Auto) 29.9, Paul[place] % (Auto) 9.0, Eos % (Auto) 3.7, Baso % (Auto) 0.6, Absolute Neuts (auto) 5.1, Absolute Lymphs (auto) 2.67, Nucleated RBC % 0, Sodium 140, Potassium 3.8, C hloride 108 H, Carbon Dioxide 26.0, Anion Gap 6, BUN 11, Creatinine 0.77, Estim Creat Clear Calc 114.07, Est GFR (MDRD) Af Amer 107, Est GFR (MDRD) Non-Af 88, BUN/Creatinine Ratio 14.2, Glucose 90, Calcium 8.6, Total Bilirubin 0.50, AST 21, ALT 45, Alkaline Phosphatase 67, Total Protein 6.9, Albumin 3.5, Globulin 3.4, Albumin/Globulin Ratio 1.0, Triglycerides 132, Cholesterol 191, LDL Cholesterol 120, VLDL Cholesterol 26, HDL Cholesterol 45, Free T4 0.93 Radiography Diagnostic Testing: Radiology Impression Brain CT 03/29/24 21:19 IMPRESSION: No acute intracranial hemorrhage in this noncontrast head CT. Electronically Signed: Jordin Baptiste MD at 21:37 EDT , ADDENDUM: 03/29/24 2159 IMPRESSION: No acute intracranial hemorrhage in this noncontrast head CT. N.B. : The above Results were Read Back by Jordin Baptiste MD to Sandra Rivera MD, and understanding confirmed on 03/29/2024 21:52:34 (ET). Electronically Signed: Jordin Baptiste MD at 21:37 EDT , ADDENDUM: 03/29/24 2200 IMPRESSION: undefined Head/Neck CTA 03/29/24 21:19 IMPRESSION: Normal CTA Head and neck with contrast. Electronically Signed: Juan Wei MD at 21:47 EDT , ADDENDUM: 03/29/24 2155 IMPRESSION: Normal CTA Head and neck with contrast. N.B. : The above Results were Read Back by Juan Wei MD to Sandra Rivera MD, and understanding confirmed on 03/29/2024 21:48:55 (ET). Electronically Signed: Juan Wei MD at 21:47 EDT , Chest X-Ray 05/13/24 21:45 IMPRESSION: Chest with no acute disease. Electronically Signed: Jordin Baptiste MD at 22:55 EDT , Brain MRI 03/29/24 23:30 IMPRESSION: Negative MRI brain without intravenous contrast. Electronically Signed: Michael Burgess MD at 11:19 EDT , D/C Instructions Discharge Diet: No restrictions Meaningful Use Info Meaningful Use Meaningful Use Diagnoses (Choose all that apply): None applicable Ischemic Stroke Statin Dosing Therapy Reference: STATIN DOSE THERAPY REFERENCE: * Patients > 75 years receive moderate or high dose statin therapy. * Patients 75 years or YOUNGER should receive HIGH intensity statin dose unless contraindicated. You will be required to document reason for non-treatment if statin daily dose does not meet guidelines. HIGH DOSE STATIN THERAPY DAILY Atorvastatin > than or = to 40 mg Rosuvastatin > than or = to 20 mg Amlodipine + Atorvastatin > than or = to 2.5/40 mg Ezetimibe + Simvastatin 10/80 mg Simvastatin 80mg Discharge Plan Admission Admit Date/Time: 03/29/24 23:25 Primary Reason for Your Visit: Left arm paresthesias, left facial paresthesia Attending Provider: John Acuña Primary Care Provider: Margret Brownlee Consulting Providers: Danny Stephens; Jose Alejandro Khan; Clair Sexton; Nazia Almeida; Angélica Hussein; Grant Farias; Soco Ndiaye; Indra Cordero; Walker Chambers; Marlene Sullivan; Francisco Jon; Dinorah Meyer; Guy Collier; Walt Guzmán; Elan Aguilar; Raven Lorenzana; Gianluca Mccormack; Marlene Anders; Fred Diaz; Js Fields Discharge Orders/Prescriptions Prescriptions: Continued multivitamin Tablet 1 tab PO DAILY alprazolam [Xanax] 0.25 mg tablet 0.25 mg PO .prn Liletta 20.4 mcg/24 hrs (8 yrs) 52 mg intrauterine device 1 device intrauterine ONCE Rx Instructions: as a single dose Referrals / Follow Up: Margret Brownlee PA [Primary Care Provider] - Within 2 Weeks (For follow-up) Disposition Disposition (needs filled in before D/C Order can be placed): Home, Self Care Charges/Coding Visit Charges Inpatient E&M: 82513 Disch Hosp
--- NOTE | 2024-03-30 12:37 | PHA.DC.MR.R ---
Pharmacy CT Med Reconciliation Pharmacy Service has performed discharge medication reconciliation for this patient. The patient's discharge medication list was reviewed for discrepancies and discrepancies were resolved. Medications at Discharge Home Medications multivitamin 1 tab PO DAILY 12/12/21 alprazolam 0.25 mg tablet (Xanax) 0.25 mg PO .prn 10/24/22 levonorgestrel 20.4 mcg/24 hr (up to 8 yrs) 52 mg intrauterine device (Liletta) 1 device intrauterine ONCE 03/18/23
[2024-03-30 13:35] VITALS: BP 106/63; PULSE 69; RESP 18; TEMP 36.6; O2SAT 99
[2024-04-02 15:33] LABS: Bedside Glucose 106 mg/dL (74-106)
== END 2024-03-30 12:17 | disposition home or self-care (01) ==
LOC: ED 22:16 → PCU 03-30 00:47
PROVIDERS: Admitting Provider Internal Medicine; Emergency Provider Emergency Medicine; Visit Provider Internal Medicine
DX: R20.2 Paresthesia of skin (principal); R29.90 Unspecified symptoms and signs involving the nervous system; N92.6 Irregular menstruation, unspecified; F41.1 Generalized anxiety disorder; G43.101 Migraine with aura, not intractable, with status migrainosus; Z79.899 Other long term (current) drug therapy; J30.2 Other seasonal allergic rhinitis; E66.9 Obesity, unspecified; Z68.33 Body mass index [BMI] 33.0-33.9, adult; F17.200 Nicotine dependence, unspecified, uncomplicated
CPT/HCPCS: 36415; 70450; 70496; 70498; 70551; 71045; 80048; 80053; 80061; 80320; 82962; 83036; 84439; 84443; 84484; 84703; 85025; 85610; 85730; 93005; 93306; 93880; 97802; 99221; 99285; J7030; Q9967; A4216; G0378; G0480

== ENCOUNTER → 2024-04-08 | Outpatient (CLI) | payer OTHER, SELFPAY ==
--- NOTE | 2024-04-08 08:29 | CT_ITS ---
EXAM: CT MAXILLOFACIAL SINUSES WITHOUT INTRAVENOUS CONTRAST CLINICAL INDICATION: CHRONIC SINUSITIS TECHNIQUE: Helically acquired images were obtained of the maxillofacial sinuses without intravenous contrast. This CT exam was performed using one or more of the following dose reduction techniques: automated exposure control, adjustment of the mA and/or kV according to patient size, and/or use of iterative reconstruction technique. COMPARISON: No relevant prior studies available. FINDINGS: MAXILLARY SINUSES: Clear. Ostiomeatal complexes are normally formed. SPHENOID SINUSES: Clear. FRONTAL SINUSES: Clear. ETHMOID AIR CELLS: Clear. NASAL CAVITY/SEPTUM: Nasal septum is mildly deviated to the left of And contains a left-sided septal spur. Nasal turbinates are unremarkable. ORBITS: Normal. CT/Sinus/Facial Bone IMPRESSION: No evidence of sinusitis. Mild septal deviation with septal spur. Electronically Signed: Karl Aragon MD at 15:54 EDT ,
== END | disposition home or self-care (01) ==
PROVIDERS: Referring Provider Otolaryngology; Visit Provider Otolaryngology
DX: J32.8 Other chronic sinusitis (principal)
CPT/HCPCS: 70486